=== PATIENT | female | born 1990 | race African-American/Black ===

== ENCOUNTER 2017-01-15 07:56 | Emergency (ER) | payer SELFPAY ==
[~2017-01-15] VITALS: Ht 170.2 cm; Wt 111.1 kg
[2017-01-15] MEDS ORDERED: IBUPROFEN600 MG ORAL (08:26)
[2017-01-15] MEDS ORDERED: ROBAXIN-750750 MG PO (08:26)
[2017-01-15] MEDS ORDERED: Methocarbamol 750mg tab ORAL ONE (08:30)
--- NOTE | 2017-01-15 08:36 | Emergency Room Report ---
History of Present Illness General Chief Complaint: Back Pain-No Injury Source: Patient Present Illness HPI 26 YO F with intermittent left lower back pain for 2 weeks. Does not radiate. Didnt take any OTC meds for pain. Pain worse with movement, better lying flat. Denies assoc lower extremity weakness, urinary/fecal incontinence, fever/chills, dysuria, history of IVDU or malignancy. Allergies: Coded Allergies: No Known Allergies (Unverified , 01/15/17) Patient History Past Medical History: none Past Surgical History: none Pertinent Family History: none Social History: Denies: alcohol use, drug use, smoking Last Menstrual Period: 01/12/17 Now: No Immunizations: UTD Reviewed Nursing Documentation: PMH: Agreed, PSxH: Agreed Nursing Documentation-PMH Past Medical History: No Stated History Review of Systems All Other Systems: negative except mentioned in HPI Physical Exam Vital Signs Date Time Temp Pulse Resp B/P Pulse Ox O2 Delivery O2 Flow Rate FiO2 01/15/17 08:08 97.2 80 16 123/72 98 Room Air Sp02 EP Interpretation: reviewed, normal General Appearance: normal inspection, well appearing, no apparent distress, alert, GCS 15, non-toxic, obese Head: normocephalic, atraumatic Eyes: bilateral eye EOMI, bilateral eye PERRL ENT: normal ENT inspection, hearing grossly normal, normal voice Neck: normal inspection, full range of motion, supple, no bony tend Respiratory: normal inspection, lungs clear, normal breath sounds, no respiratory distress, no retraction, no wheezing Cardiovascular #1: regular rate, rhythm, no edema Gastrointestinal: normal inspection, normal bowel sounds, non tender, soft, no guarding, no hernia Genitourinary: no CVA tenderness Musculoskeletal: normal inspection, back normal, normal range of motion, Eduardo' s Sign negative, other - Mild ttp to left paravertebral area of left lower back Neurologic: normal inspection, alert, oriented x3, responsive, manager of recruiting III-XII nml as tested, DTRs symmetric, speech normal Psychiatric: normal inspection, judgement/insight normal, mood/affect normal Skin: normal inspection Lymphatic: normal inspection Medical Decision Making Diagnostic Impression: Primary Impression: Back pain Qualified Codes: M54.5 - Low back pain ER Course A: low suspicion for cord compression given well appearance, left sided paravertebral ttp, no focal neuro deficits, absence of midline ttp/masses and pain worse with movement with known exacerbating activity Robaxin, Ibuprofen given in ED with Rx for both Advised PMD followup DC home Last Vital Signs Date Time Temp Pulse Resp B/P Pulse Ox O2 Delivery O2 Flow Rate FiO2 01/15/17 08:08 97.2 80 16 123/72 98 Room Air Status: improved Disposition: HOME, SELF-CARE Condition: Improved Scripts Ibuprofen* (MOTRIN*) 600 Mg Tablet 600 MG ORAL THREE TIMES A DAY, #30 TAB 0 Refills Prov: NADJA GONZALEZ M.D. 01/15/17 Methocarbamol* (ROBAXIN-750*) 750 Mg Tablet 750 MG PO TID, #30 TAB 0 Refills Prov: NADJA GONZALEZ M.D. 01/15/17 Referrals: [facility]/,REFERRING (PCP) Patient Instructions: Back Pain, Adult NADJA GONZALEZ M.D. Jan 15, 2017 08:36
[2017-01-15 08:50] VITALS: BP 120/86
== END 2017-01-15 08:50 | disposition home or self-care (01) ==
LOC: EMR 08:24
DX: M54.5 Low back pain (principal)
CPT/HCPCS: 99284

== ENCOUNTER 2018-02-12 13:26 | Emergency (ER) | payer MEDICAID ==
[~2018-02-12] VITALS: Ht 170.2 cm; Wt 104.3 kg
[~2018-02-12 13:26] MED LIST: CYCLOBENZAPRINE10 MG ORAL; IBUPROFEN600 MG ORAL; NKM; ROBAXIN-750750 MG PO
[2018-02-12 13:38] VITALS: BP 139/81
[2018-02-12] MEDS ORDERED: PROMETHAZINE-D118 ML ORAL (13:59)
[2018-02-12] MEDS ORDERED: TYLENOL EXTRA500 MG ORAL (13:59)
--- NOTE | 2018-02-12 13:59 | Emergency Room Report ---
History of Present Illness General Chief Complaint: Sore Throat Source: Patient Present Illness HPI 28 yo female patient presents to ER complaining of sore throat x4 days. Reports cough with mucus during this time. Denies chest pain, SOB. Denies difficulty swallowing or voice changes. Denies blood in sputum. Denies fever. Reports hx of sick contacts. Seen in ER with sons, one son had similar symptoms 1 week ago. Denies abdominal pain, nausea, vomiting. Reports taking Theraflu for symptoms. Also complains of intermittent, watery diarrhea. Reports drinking lots of fluids. Denies blood in stool or diarrhea. Denies pain with defecation. Denies contacts with similar symptoms. Denies recent travel outside of [place]. Allergies: Coded Allergies: No Known Allergies (Unverified , 01/15/17) Patient History Past Medical History: see triage record Last Menstrual Period: 01/29/18 Reviewed Nursing Documentation: PMH: Agreed; PSxH: Agreed Nursing Documentation-PMH Past Medical History: No Stated History Review of Systems All Other Systems: negative except mentioned in HPI Physical Exam Vital Signs Date Time Temp Pulse Resp B/P (MAP) Pulse Ox O2 Delivery O2 Flow Rate FiO2 02/12/18 13:33 98.1 105 18 139/81 94 Room Air 98.1 Sp02 EP Interpretation: reviewed, normal General Appearance: well appearing, no apparent distress, alert, GCS 15, non- toxic Head: normocephalic, atraumatic Eyes: bilateral eye normal inspection, bilateral eye PERRL ENT: hearing grossly normal, normal pharynx, no angioedema, normal voice, TMs + canals normal, uvula midline, moist mucus membranes, other - no erythema, no exudates, no uvula deviation, no drooling Neck: full range of motion Respiratory: lungs clear, normal breath sounds, no rhonchi, no respiratory distress, no accessory muscle use, no wheezing, speaking full sentences, other - no stridor Cardiovascular #1: regular rate, rhythm, no edema Gastrointestinal: non tender, soft, no mass, non-distended, no guarding, no rebound Musculoskeletal: back normal, digits/nails normal, gait/station normal, normal range of motion, non-tender Neurologic: alert, oriented x3, responsive, motor strength/tone normal, sensory intact Skin: no rash Lymphatic: no adenopathy Medical Decision Making PA Attestation Dr. Dennis is my supervising Physician whom patient management has been discussed with. Diagnostic Impression: Primary Impression: Sore throat Additional Impressions: Cough Diarrhea ER Course Pt presents to ED c/o sore throat and cough. DDX considered but are not limited to influenza, viral syndrome, strep throat, rhinitis, sinusitis, otitis media. Low suspicion for PE per Well's criteria, no hemoptysis, no calf swelling, no immobilization. DDX considered but are not limited to pharyngitis, laryngitis, URI, peritonsillar abscess, tonsillitis. Low suspicion for peritonsillar abscess, no neck stiffness, no uvular deviation , no hot potato voice, no stridor. PE benign, does not require labs, imaging, or treatment at this time. VITAL SIGNS are WNL, patient is afebrile. Pulse mildly elevated. Will monitor. Denies chest pain, SOB, PERAZA, vision loss, calf pain. Does not require acute intervention at this time. ORDERS: none required at this time, diagnosis is clinical ED INTERVENTIONS:none required at this time Explained sore throat likely related to cough symptoms. Symptoms like viral in nature. BRAT diet for diarrhea. Does not require abx at this time, denies recent travel or blood in stool. Stay hydrated. Followup with primary care provider. DISCHARGE: -Rx given for Tylenol/Acetaminophen -Rx given for Promethazine syrup for cough sx. At this time pt is stable for d/c to home. Patient is resting comfortably, in no acute distress, nontoxic appearing, laughing and smiling, talking without difficulty. Patient to take medications as instructed Will provide with patient care instructions and any necessary prescriptions. Care plan and follow-up instructions provided. Patient instructed to follow-up with primary care provider in 3 - 5 days. Patient questions asked and answered. Patient reports understanding and agreement to treatment plan. ER precautions given. Patient instructed to return to ER immediately for any new or worsening of symptoms including but not limited to increasing SOB, persistent fever. Last Vital Signs Date Time Temp Pulse Resp B/P (MAP) Pulse Ox O2 Delivery O2 Flow Rate FiO2 02/12/18 13:38 98.1 105 18 139/81 94 Room Air 98.1 Disposition: HOME, SELF-CARE Condition: Stable Scripts D-Methorphan Hb/Prometh Hcl* (PROMETHAZINE-DM SYRUP*) 118 Ml Syrup 5 ML ORAL Q6H PRN for For Cough, #118 ML 0 Refills Prov: Eric Bui 02/12/18 Acetaminophen* (TYLENOL EXTRA STRENGTH*) 500 Mg Tablet 500 MG ORAL Q8H PRN for Prn Headache/Temp > 101, #30 TAB 0 Refills Prov: Eric Bui 02/12/18 Patient Instructions: Cough, Adult, [id number], Diarrhea, Adult, [id number] , Sore Throat Additional Instructions: Followup with primary care provider in 3 -5 days. BRAT diet: bananas, rice, apple sauce, toast. Take medications as directed. Patient questions asked and answered. ER precautions given, patient instructed to return to ER immediately for any new or worsening of symptoms. Eric Bui Feb 12, 2018 13:59
== END 2018-02-12 14:15 | disposition home or self-care (01) ==
LOC: EMR 13:50
DX: R07.0 Pain in throat (principal); R05 Cough; R19.7 Diarrhea, unspecified
CPT/HCPCS: 99284

== ENCOUNTER 2018-02-16 08:24 | Emergency (ER) | payer MEDICAID ==
[~2018-02-16] VITALS: Ht 170.2 cm; Wt 108.9 kg
[~2018-02-16 08:24] MED LIST changes: +PROMETHAZINE-D118 ML ORAL; +TYLENOL EXTRA500 MG ORAL
[2018-02-16 08:37] VITALS: BP 116/79
--- NOTE | 2018-02-16 08:52 | Emergency Room Report ---
History of Present Illness General Chief Complaint: Upper Respiratory Illness Source: Patient Present Illness HPI The patient presents with sore throat since last Thursday. Yesterday she noticed white spots on her tonsils. Pain in throat rated 7/10, burning and worse with swallowing, not radiating. The patient was seen on Thursday here and her children were also ill with ear infections and sore throats. The person evaluating her stated that her throat exam normal at that time. She's had aches and some fever. There's a mildly productive cough. There is no runny nose. She has no ear pain. There's no nausea vomiting diarrhea. She states she is not at this time. She denies sleep apnea. She was told as a child that her tonsils needed to be removed. 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 Last Menstrual Period: Jan 29 Now: No Reviewed Nursing Documentation: PMH: Agreed; PSxH: Agreed Nursing Documentation-PMH Past Medical History: No Stated History Review of Systems All Other Systems: negative except mentioned in HPI Physical Exam Vital Signs Date Time Temp Pulse Resp B/P (MAP) Pulse Ox O2 Delivery O2 Flow Rate FiO2 02/16/18 08:28 98.3 76 16 116/79 95 Room Air 98.2 Sp02 EP Interpretation: reviewed, normal General Appearance: well appearing, no apparent distress Head: normocephalic, atraumatic Eyes: bilateral eye normal inspection, bilateral eye PERRL ENT: hearing grossly normal, normal voice, moist mucus membranes, pharyngeal erythema, tonsillar exudate Neck: full range of motion, supple Respiratory: no respiratory distress, speaking full sentences Cardiovascular #1: regular rate, rhythm Gastrointestinal: normal inspection, overweight Musculoskeletal: no calf tenderness Neurologic: alert, normal gait, grossly normal Psychiatric: mood/affect normal Skin: no rash Medical Decision Making Diagnostic Impression: Primary Impression: Exudative pharyngitis ER Course Patient presents with pharyngitis with exudates. Differential includes mononucleosis, strep amongst others. Due to the fact that there are exudates antibiotics are indicated. Patient not toxic and not dehydrated. The patient is stable for outpatient observation and treatment. Last Vital Signs Date Time Temp Pulse Resp B/P (MAP) Pulse Ox O2 Delivery O2 Flow Rate FiO2 02/16/18 09:03 98.3 76 16 116/79 95 Room Air 98.3 Status: improved Disposition: HOME, SELF-CARE Condition: Improved Scripts Azithromycin* (ZITHROMAX*) 250 Mg Tablet 250 MG ORAL DAILY, #4 TAB 0 Refills Prov: Lake Fuller M.D. 02/16/18 Referrals: [facility]ERR[facility] (PCP) Lake Fuller M.D. Feb 16, 2018 08:52
[2018-02-16] MEDS ORDERED: AZITHROMYCIN250 MG ORAL (08:53)
[2018-02-16] MEDS ORDERED: Azithromycin 250mg tab ORAL ONE (09:00)
[2018-02-16 09:03] VITALS: BP 116/79
== END 2018-02-16 09:03 | disposition home or self-care (01) ==
LOC: EMR 08:50
DX: J02.9 Acute pharyngitis, unspecified (principal)
CPT/HCPCS: 99283; Q0144

== ENCOUNTER 2018-05-10 13:12 | Emergency (ER) | payer MEDICAID ==
[~2018-05-10] VITALS: Ht 170.2 cm; Wt 113.4 kg
[~2018-05-10 13:12] MED LIST changes: +AZITHROMYCIN250 MG ORAL
--- NOTE | 2018-05-10 14:14 | Emergency Room Report ---
History of Present Illness General Chief Complaint: Female Urogenital Problems Source: Patient Present Illness HPI 28-year-old female patient presents ER complaining of vaginal discharge for the past few days. Reports "I think I have bacterial vaginosis". Reports yellowish -white discharge that is painful. Reports unable to determine if foul-smelling odor because she lost her sense of smell. Denies dysuria, hematuria. Denies vaginal lesions. Denies rash. Reports recent sexual activity with condoms few weeks ago. Reports last menstrual, Was normal for her. Denies fever, chest pain, shortness of breath, abdominal pain, flank pain, back pain. Allergies: Coded Allergies: No Known Allergies (Unverified , 01/15/17) Patient History Past Medical History: see triage record Last Menstrual Period: 04/13/18 Reviewed Nursing Documentation: PMH: Agreed; PSxH: Agreed Nursing Documentation-PMH Past Medical History: No Stated History Review of Systems All Other Systems: negative except mentioned in HPI Physical Exam Vital Signs Date Time Temp Pulse Resp B/P (MAP) Pulse Ox O2 Delivery O2 Flow Rate FiO2 05/10/18 13:31 98.4 79 18 147/81 96 Room Air 98.4 Sp02 EP Interpretation: reviewed, normal General Appearance: well appearing, no apparent distress, alert, GCS 15, non- toxic Head: normocephalic, atraumatic Eyes: bilateral eye normal inspection, bilateral eye PERRL ENT: hearing grossly normal, normal pharynx, no angioedema, normal voice, uvula midline, moist mucus membranes Neck: full range of motion Respiratory: lungs clear, normal breath sounds, no rhonchi, no respiratory distress, no accessory muscle use, no wheezing, speaking full sentences Cardiovascular #1: regular rate, rhythm, no edema Gastrointestinal: non tender, soft, no mass, non-distended, no guarding, no rebound Genitourinary: no CVA tenderness, deferred Musculoskeletal: normal inspection Neurologic: alert, oriented x3, responsive, motor strength/tone normal, sensory intact Medical Decision Making PA Attestation Dr. Arriola is my supervising Physician whom patient management has been discussed with. Diagnostic Impression: Primary Impression: Urinary tract infection Additional Impressions: Bacterial vaginosis Yeast infection ER Course Pt presents to ED c/o urinary symptoms. DDX considered but are not limited to cystitis, pyelonephritis, STI, vaginitis, . VITAL SIGNS are WNL, patient is afebrile. Ordered UA. ER COURSE UA results show multiple white blood cells, positive leukocyte esterase, possible UTI, will treat with abx. urine negative. Informed patient results. pelvic exam deferred. symptoms consistent with bacterial vaginosis and possible yeast infection. Will provide Fluconazole in ER and discharged patient home with Flagyl for presumptive infection. Instructed not to drink alcohol while taking Flagyl. If concern for STI, followup with STI clinic for testing and treatment. Denies STI concern. inform sexual contacts that they need to be evaluated for treatment as well. did not have sex for 2 weeks. Wear condoms during sex. Patient is resting comfortably in chair, nontoxic appearing, in no acute distress. Patient states they feel better and is ready to go home. DISCHARGE -Rx provided for Keflex -Rx provided for Flagyl. Do not drink while on medication. Patient is stable for discharge. Patient resting comfortably, in no acute distress, nontoxic appearing, talking without difficulty. Will provide with patient care instructions and any necessary prescriptions. Patient understands and agrees to treatment plan. Patient encouraged to drink plenty of fluids. Patient to take medication as instructed. Care plan and follow-up instructions provided. Patient questions asked and answered. Reports understanding and agreement to treatment plan. Patient instructed to follow-up with primary care provider in 3 - 5 days. ER precautions given. Patient instructed to return to ER immediately for any new or worsening of symptoms. Including but not limited to fever, abdominal pain , intractable vomiting. - Please note that this Emergency Department Report was dictated using [employer] science chair technology software, occasionally this can lead to erroneous entry secondary to interpretation by the dictation equipment. Labs Test 05/10/18 13:50 Urine Color Pale yellow Urine Appearance Turbid Urine pH 7 (4.5-8.0) Urine Specific [place] 1.015 (1.005-1.035) Urine Protein 2+ (NEGATIVE) Urine Glucose (UA) Negative (NEGATIVE) Urine Ketones Negative (NEGATIVE) Urine Occult Blood 3+ (NEGATIVE) Urine Nitrite Negative (NEGATIVE) Urine Bilirubin Negative (NEGATIVE) Urine Urobilinogen Normal MG/DL (0.0-1.0) Urine Leukocyte Esterase 3+ (NEGATIVE) Urine RBC 30-40 /HPF (0 - 2) Urine WBC Tntc /HPF (0 - 2) Urine Squamous Epithelial Cells Many /LPF (NONE/OCC) Urine Bacteria Many /HPF (NONE) Urine HCG, Qualitative Negative (NEGATIVE) Last Vital Signs Date Time Temp Pulse Resp B/P (MAP) Pulse Ox O2 Delivery O2 Flow Rate FiO2 05/10/18 13:31 98.4 79 18 147/81 96 Room Air 98.4 Disposition: HOME, SELF-CARE Condition: Stable Scripts Metronidazole* (FLAGYL*) 500 Mg Tablet 500 MG ORAL BID, #14 TAB 0 Refills Prov: Eric Bui 05/10/18 Cephalexin* (KEFLEX*) 500 Mg Capsule 500 MG ORAL EVERY 12 HOURS, #14 CAP 0 Refills Prov: Eric Bui 05/10/18 Patient Instructions: Bacterial Vaginosis, [id number], Urinary Tract Infection, Vaginal Yeast Infection, Adult Additional Instructions: Followup with primary care provider and followup with and/or OBGYN. Drink plenty of fluids. Take medications as directed. Do not drink alcohol while taking medications. Avoid sex for 2 weeks. Wear condoms during sex. Inform partners of need for testing and treatment. Patient questions asked and answered. ER precautions given, patient instructed to return to ER immediately for any new or worsening of symptoms. Eric Bui May 10, 2018 14:14
[2018-05-10] MEDS ORDERED: Fluconazole 100mg tab ORAL ONE (14:15)
[2018-05-10 14:20] LABS: APPEARANCE,URINE TURBID; BILIRUBIN, URINE NEGATIVE (NEGATIVE); COLOR,URINE PALE YELLOW; GLUCOSE, URINE (UA) NEGATIVE (NEGATIVE); KETONES,URINE NEGATIVE (NEGATIVE); LEUKOCYTE ESTERASE ,URINE 3+ (NEGATIVE); NITRITE,URINE NEGATIVE (NEGATIVE); PH,URINE 7 (4.5-8.0); PROTEIN,URINE 2+ (NEGATIVE); UROBILINOGEN,URINE NORMAL MG/DL (0.0-1.0)
[2018-05-10 14:41] VITALS: BP 147/81
[2018-05-10] MEDS ORDERED: CEPHALEXIN500 MG ORAL (14:53)
[2018-05-10] MEDS ORDERED: METRONIDAZOLE500 MG ORAL (14:53)
[2018-05-10 15:28] VITALS: BP 147/81
== END 2018-05-10 15:30 | disposition home or self-care (01) ==
LOC: EMR 13:58
DX: N39.0 Urinary tract infection, site not specified (principal); N76.0 Acute vaginitis; B96.89 Other specified bacterial agents as the cause of diseases classified elsewhere; B37.9 Candidiasis, unspecified
CPT/HCPCS: 81003; 81025; 87086; 99284

== ENCOUNTER 2018-12-19 13:04 | Emergency (ER) | payer MEDICAID ==
[~2018-12-19] VITALS: Ht 170.2 cm; Wt 113.4 kg
[~2018-12-19 13:04] MED LIST changes: +CEPHALEXIN500 MG ORAL; +METRONIDAZOLE500 MG ORAL
[2018-12-19 13:20] VITALS: BP 132/87
--- NOTE | 2018-12-19 13:20 | NUR ---
ED Nurse Note: pt aao x 4 walked in to ER c/o flu like symptoms. pt did not cough during assessment. pt calm and cooperative. skin clean and intact.
--- NOTE | 2018-12-19 13:38 | Emergency Room Report ---
History of Present Illness General Chief Complaint: Flu Like Symptoms Source: Patient Present Illness HPI 28-year-old female with no significant past medical history here complaining of 2 days of sore throat, fever and chills, and mild cough. Denies ear pain, rhinorrhea, chest pain, SOB, wheezing, palpitations, abdominal pain, nausea vomiting diarrhea. She has recurrent history of strep pharyngitis as a child. Has taken ibuprofen with minimal symptom relief. Allergies: Coded Allergies: No Known Allergies (Unverified , 01/15/17) Patient History Past Medical History: see triage record Past Surgical History: unable to obtain Pertinent Family History: none Now: No Immunizations: UTD Reviewed Nursing Documentation: PMH: Agreed; PSxH: Agreed Nursing Documentation-PMH Past Medical History: No Stated History Review of Systems All Other Systems: negative except mentioned in HPI Physical Exam Vital Signs Date Time Temp Pulse Resp B/P (MAP) Pulse Ox O2 Delivery O2 Flow Rate FiO2 12/19/18 13:10 98.4 84 16 132/87 96 Room Air Sp02 EP Interpretation: reviewed, normal General Appearance: normal inspection, well appearing Head: normocephalic Eyes: bilateral eye normal inspection, bilateral eye PERRL ENT: no angioedema, TMs + canals normal, uvula midline, tonsillar exudate Neck: normal inspection, full range of motion, supple Respiratory: normal inspection, lungs clear, no rhonchi, no wheezing Cardiovascular #1: normal inspection, no edema, no murmur Gastrointestinal: normal inspection, soft Rectal: deferred Genitourinary: no CVA tenderness Musculoskeletal: normal inspection, back normal Neurologic: normal inspection, alert, responsive Psychiatric: normal inspection, judgement/insight normal Skin: normal inspection, normal color, no rash Lymphatic: adenopathy - left anterior cervical Medical Decision Making PA Attestation All diagnosis and treatment plans were reviewed and discussed with my supervising physician Dr. Dennis Diagnostic Impression: Primary Impression: Strep pharyngitis ER Course 28-year-old female with no significant past medical history here complaining of 2 days of sore throat, fever and chills, and mild cough. Denies ear pain, rhinorrhea, chest pain, SOB, wheezing, palpitations, abdominal pain, nausea vomiting diarrhea. She has recurrent history of strep pharyngitis as a child. Has taken ibuprofen with minimal symptom relief. Ddx considered but are not limited to strep pharyngitis, upper respiratory infection, influenza, peritonsillar abscess Vital signs: are WNL, pt. is afebrile H&PE are most consistent with strep pharyngitis ORDERS: amoxicillin, Phenergan ED INTERVENTIONS: None required at this time. DISCHARGE: At this time pt. is stable for d/c to home. Will provide printed patient care instructions, and any necessary prescriptions. Care plan and follow up instructions have been discussed with the patient prior to discharge. Last Vital Signs Date Time Temp Pulse Resp B/P (MAP) Pulse Ox O2 Delivery O2 Flow Rate FiO2 12/19/18 13:10 98.4 84 16 132/87 96 Room Air Disposition: HOME, SELF-CARE Condition: Stable Scripts Promethazine Hcl (PROMETHAZINE HCL*) 6.25 Mg/5 Ml Syrup 5 ML ORAL Q6H, #120 ML 0 Refills Prov: Carlton Mulligan 12/19/18 Amoxicillin* (AMOXIL*) 500 Mg Capsule 500 MG ORAL EVERY 12 HOURS for 10 Days, #20 CAP Prov: Carlton Mulligan 12/19/18 Referrals: [facility]ERR[facility] (PCP) Patient Instructions: Strep Throat, [id number] Additional Instructions: take medication as directed, avoid sweets and spicy food. Carlton Mulligan Dec 19, 2018 13:38
[2018-12-19] MEDS ORDERED: AMOXICILLIN500 MG ORAL (13:40)
[2018-12-19] MEDS ORDERED: PROMETHAZI6.25 MG/1 ORAL (13:40)
[2018-12-19 13:50] VITALS: BP 132/87
--- NOTE | 2018-12-19 13:50 | NUR ---
ED Nurse Note: Pt cleared DC by ERPA. Pt is A/Ox4, VSS, DC instruction and prescriptions given, pt verbalized understanding. ID wristband removed. All belongings given to pt. Pt ambulated out of ER with steady gait.
== END 2018-12-19 13:50 | disposition home or self-care (01) ==
LOC: EMR 13:36
DX: J02.0 Streptococcal pharyngitis (principal); B95.5 Unspecified streptococcus as the cause of diseases classified elsewhere
CPT/HCPCS: 99282

== ENCOUNTER 2019-08-28 14:38 | Emergency (ER) | payer MEDICAID ==
[~2019-08-28] VITALS: Ht 170.2 cm; Wt 113.4 kg
[~2019-08-28 14:38] MED LIST changes: +AMOXICILLIN500 MG ORAL; +PROMETHAZI6.25 MG/1 ORAL
[2019-08-28 15:00] VITALS: BP 110/85
--- NOTE | 2019-08-28 15:00 | NUR ---
ER Nurse Note: Patient walked in to ER from home due to vaginal itching and yellow and thick discharge. Patient alert and oriented x4 and amulatory. Skin clean and intact. Calm and cooperative. No acute distress noted at this time.
--- NOTE | 2019-08-28 15:05 | Emergency Room Report ---
History of Present Illness General Chief Complaint: Female Urogenital Problems Source: Patient Present Illness HPI 29-year-old female with no significant past medical history here complaining of over 1 week of yellow vaginal discharge and pruritus in the was last sexually active a month ago. Denies urinary frequency, urgency, hematuria, abdominal pain, nausea vomiting and fever and chills. Denies vaginal ulcers. Patient agrees to be prophylactically treated for possible sexually transmitted diseases and bacterial vaginosis as well as yeast infection. Patient last menstrual period was a month ago and regular. Denies other associated symptoms. Allergies: Coded Allergies: No Known Allergies (Unverified , 01/15/17) Patient History Past Medical History: see triage record Past Surgical History: unable to obtain Pertinent Family History: none Last Menstrual Period: 07/2019 Now: No Immunizations: UTD Reviewed Nursing Documentation: PMH: Agreed; PSxH: Agreed Nursing Documentation-PMH Past Medical History: No Stated History Review of Systems All Other Systems: negative except mentioned in HPI Physical Exam Vital Signs Date Time Temp Pulse Resp B/P (MAP) Pulse Ox O2 Delivery O2 Flow Rate FiO2 08/28/19 14:49 98.1 80 16 110/85 (93) 99 Room Air Sp02 EP Interpretation: reviewed, normal General Appearance: no apparent distress, alert, GCS 15, non-toxic Head: normocephalic, atraumatic Eyes: bilateral eye normal inspection, bilateral eye PERRL ENT: hearing grossly normal, normal pharynx, no angioedema, normal voice Neck: full range of motion, supple/symm/no masses Respiratory: chest non-tender, lungs clear, normal breath sounds, no wheezing, speaking full sentences Cardiovascular #1: regular rate, rhythm, no edema, no murmur Gastrointestinal: normal bowel sounds, non tender, soft, no mass, non-distended , no guarding, no rebound Rectal: normal exam Genitourinary: no CVA tenderness Musculoskeletal: back normal, gait/station normal, normal range of motion, non- tender Neurologic: alert, oriented x3, responsive, motor strength/tone normal, sensory intact, speech normal Psychiatric: judgement/insight normal, memory normal, mood/affect normal, no suicidal/homicidal ideation Skin: no rash Lymphatic: no adenopathy Medical Decision Making PA Attestation All my diagnosis and treatment plans were reviewed ad discussed with my supervising physician Dr. Baeza Diagnostic Impression: Primary Impression: Vaginitis Additional Impression: UTI (urinary tract infection) ER Course 29-year-old female with no significant past medical history here complaining of over 1 week of yellow vaginal discharge and pruritus in the was last sexually active a month ago. Denies urinary frequency, urgency, hematuria, abdominal pain, nausea vomiting and fever and chills. Denies vaginal ulcers. Patient agrees to be prophylactically treated for possible sexually transmitted diseases and bacterial vaginosis as well as yeast infection. Patient last menstrual period was a month ago and regular. Denies other associated symptoms. Ddx considered but are not limited to: vaginitis, yeast infection, BV, chlamydia , Gonorrhea, syphilis, HIV, herpes 1 or 2 Vital signs: are WNL, pt. is afebrile H&PE are most consistent with : UTI, vaginitis ORDERS: UA, urine test, azithromycin, Flagyl, Diflucan ED INTERVENTIONS: Rocephin DISCHARGE: At this time pt. is stable for d/c to home. Will provide printed patient care instructions, and any necessary prescriptions. Care plan and follow up instructions have been discussed with the patient prior to discharge. Patient to follow-up with primary care provider for further testing patient agrees for prophylactic treatment of sexually transmitted diseases. If worsening symptoms return to emergency room Last Vital Signs Date Time Temp Pulse Resp B/P (MAP) Pulse Ox O2 Delivery O2 Flow Rate FiO2 08/28/19 14:49 98.1 80 16 110/85 (93) 99 Room Air Disposition: HOME, SELF-CARE Condition: Stable Scripts Fluconazole (FLUCONAZOLE) 100 Mg Tablet 150 MG ORAL ONCE for 1 Day, #1 TAB 0 Refills Prov: Carlton Mulligan 08/28/19 Metronidazole* (FLAGYL*) 500 Mg Tablet 500 MG ORAL BID for 7 Days, #14 TAB Prov: Carlton uMlligan 08/28/19 Azithromycin (AZITHROMYCIN) 500 Mg Tablet 2 TAB ORAL ONCE for 1 Day, #2 TAB Prov: Carlton Mulligan 08/28/19 Patient Instructions: Urinary Tract Infection, Vaginitis Additional Instructions: Take medication as directed, follow-up with your primary care provider and possible referral to gaming cage worker. If worsening symptoms return to the emergency room Carlton Mulligan Aug 28, 2019 15:05
[2019-08-28] MEDS ORDERED: METRONIDAZOLE500 MG ORAL (15:07)
[2019-08-28] MEDS ORDERED: AZITHROMYCIN500 MG ORAL (15:07)
[2019-08-28] MEDS ORDERED: FLUCONAZOLE100 MG ORAL (15:07)
[2019-08-28] MEDS ORDERED: Lidocaine 1% MPF 10mg/ml 5ml INJ ONE (15:15)
--- NOTE | 2019-08-28 15:40 | NUR ---
ED Nurse Note: Pt cleared by health care Provider for discharge. DC instructions/prescription was given and explained to pt and verbalized understanding of teachings. All medical deviecs such as ID band removed. Pt is AAO x4, ambulatory and left with all personal belongings.
[2019-08-28 15:43] VITALS: BP 118/79
[2019-08-28 15:54] LABS: APPEARANCE,URINE SLIGHTLY CLOUDY; BILIRUBIN, URINE NEGATIVE (NEGATIVE); COLOR,URINE PALE YELLOW; GLUCOSE, URINE (UA) NEGATIVE (NEGATIVE); KETONES,URINE NEGATIVE (NEGATIVE); LEUKOCYTE ESTERASE ,URINE 3+ (NEGATIVE); NITRITE,URINE NEGATIVE (NEGATIVE); PH,URINE 7 (4.5-8.0); PROTEIN,URINE 2+ (NEGATIVE); UROBILINOGEN,URINE NORMAL MG/DL (0.0-1.0)
== END 2019-08-28 16:00 | disposition home or self-care (01) ==
LOC: EMR 15:54
DX: N76.0 Acute vaginitis (principal); N39.0 Urinary tract infection, site not specified
CPT/HCPCS: 81001; 81025; 87086; 96372; 96374; 99284; J0696